=== PATIENT | female | born 1990 | race African-American/Black ===

== ENCOUNTER 2022-06-05 22:12 | Emergency (ER) | payer MEDICAID, SELFPAY ==
[2022-06-05] MEDS ORDERED: Ondansetron ODT 4 MG TAB ONE (22:33)
== END 2022-06-05 22:37 | disposition home or self-care (01) ==
LOC: NAV ERS 22:12
DX: A08.4 Viral intestinal infection, unspecified (principal); F17.210 Nicotine dependence, cigarettes, uncomplicated
CPT/HCPCS: 99283; Q0162